=== PATIENT | female | born 1965 | race Asian ===

== ENCOUNTER 2017-06-12 20:21 | Emergency (ER) | payer BC ==
[2017-06-12 20:27] VITALS: BP 144/83; PULSE 74; TEMP 98.7; BMI 23.6
[2017-06-12] MEDS ORDERED: valACYclovir HCL 1000 MG TABLET PO ONE (21:34)
--- NOTE | 2017-06-12 21:34 | PDOC ---
History of Present Illness - General History Source: Patient Exam Limitations: No Limitations - History of Present Illness Initial Comments: 06/12/17 21:53 The patient is a 52 year old female, with a significant PMH of type 2 DM, hypercholesterolemia, who presents to the emergency department with right sided facial rash beginning 4 days ago. THe patient states she noticed a red rash on the right side of her lip friday night but did not think much of the rash. However, the patient states that Friday she noticed she began to have another red rash on the bottom of the right eye lid with some associated itching and burning sensation. The patient reports that this morning she felt an itching sensation preceding another red rash on the right cheek with associated burning and itching sensation. The patient states she has been taking Zyrtec for the rash with minimal relief. The patient states she called her PMD Dr. Wilkinson who advised the patient to come to the ED for evaluation of the rash. The patient reports increased stressors including caring for her mother and the loss of her mother in law. The patient states she does not recall having chicken pox as a child. The patient denies vision changes or ear pain. The patient denies chest pain, shortness of breath, headache and dizziness. Denies fever, chills, nausea, vomit, diarrhea and constipation. Denies dysuria, frequency, urgency and hematuria. Allergies: NKA PCP: Dr. Wilkinson <Ag Gibson - Last Filed: 06/12/17 21:53> <Samantha Aguilar - Last Filed: 06/13/17 02:23> - General Chief Complaint: Redness To Affected Area Stated Complaint: FACIAL REDNESS/ITCHING Time Seen by Provider: 06/12/17 20:27 Past History <Ag Gibson - Last Filed: 06/12/17 21:53> - Past Medical History Anemia: Yes Asthma: No Cancer: No Cardiac Disorders: No CVA: No COPD: No CHF: No Dementia: No Diabetes: ("ELEVATED BLOOD SUGAR") GI Disorders: No Disorders: No HTN: No Hypercholesterolemia: Yes Liver Disease: No Seizures: No Thyroid Disease: No - Surgical History Abdominal Surgery: Yes Appendectomy: No Cardiac Surgery: No Cholecystectomy: No Lung Surgery: No Neurologic Surgery: No Orthopedic Surgery: No - Suicide/Smoking/Psychosocial Hx Smoking Status: Yes Smoking History: Former smoker Have you smoked in the past 12 months: No Number of Cigarettes Smoked Daily: 1 Information on smoking cessation initiated: No 'Breaking Loose' booklet given: 08/12/12 Hx Alcohol Use: No Drug/Substance Use Hx: No Substance Use Type: None Hx Substance Use Treatment: No <JeffSamantha Stephen - Last Filed: 06/13/17 02:23> - Past Medical History Allergies/Adverse Reactions: Allergies Allergy/AdvReac Type Severity Reaction Status Date / Time No Known Allergies Allergy Verified 07/05/13 08:13 Home Medications: Ambulatory Orders Cetirizine HCl [Zyrtec -] 10 mg PO ONCE 06/12/17 Simvastatin 20 mg PO DAILY 06/12/17 Valacyclovir HCl [Valtrex -] 1,000 mg PO TID #20 tablet 06/12/17 Review of Systems - Review of Systems Comments:: 06/12/17 21:53 GENERAL/CONSTITUTIONAL: No fever or chills. No weakness. HEAD, EYES, EARS, NOSE AND THROAT: No change in vision. No ear pain or discharge. No sore throat. CARDIOVASCULAR: No chest pain or shortness of breath. RESPIRATORY: No cough, wheezing, or hemoptysis. GASTROINTESTINAL: No nausea, vomiting, diarrhea or constipation. GENITOURINARY: No dysuria, frequency, or change in urination. MUSCULOSKELETAL: No joint or muscle swelling or pain. No neck or back pain. SKIN: +Right lip rash. +Right eyelid rash. +Right cheek rash. NEUROLOGIC: No headache, vertigo, loss of consciousness, or change in strength/ sensation. ENDOCRINE: No increased thirst. No abnormal weight change. HEMATOLOGIC/LYMPHATIC: No anemia, easy bleeding, or history of blood clots. ALLERGIC/IMMUNOLOGIC: No hives or skin allergy. <Ag Gibson - Last Filed: 06/12/17 21:53> *Physical Exam - Vital Signs Last Vital Signs Temp Pulse Resp BP Pulse Ox 98.7 F 74 16 144/83 97 06/12/17 20:25 06/12/17 20:25 06/12/17 20:25 06/12/17 20:25 06/12/17 20:25 - Physical Exam Comments: 06/12/17 21:54 GENERAL: Awake, alert, and fully oriented, in no acute distress HEAD: No signs of trauma EYES: PERRLA, EOMI, sclera anicteric, conjunctiva clear ENT: (+) 1 cm by 1 cm erythematous area under the mid right lower eyelid. (+) There is faint 2 cm by 1cm erythematous macular area of the mid right cheek. (+ ) There is fine vesicular rash around the right nares. (+) cm by cm erythematous area of the right upper lip just lateral to the midline. Remainder of the exam including the right ear and eye are normal without evidence of rash or abnormality. Auricles normal inspection, hearing grossly normal, nares patent , oropharynx clear without exudates. Moist mucosa NECK: Normal ROM, supple, no lymphadenopathy, JVD, or masses EXTREMITIES: Normal range of motion, no edema. No clubbing or cyanosis. No cords, erythema, or tenderness NEUROLOGICAL: Cranial nerves II through XII grossly intact. Normal speech, normal gait SKIN: Warm. Dry. <Ag Gibson - Last Filed: 06/12/17 21:53> - Vital Signs Last Vital Signs Temp Pulse Resp BP Pulse Ox 98.7 F 74 16 144/83 97 06/12/17 20:25 06/12/17 20:25 06/12/17 20:25 06/12/17 20:25 06/12/17 20:25 <Samantha Aguilar - Last Filed: 06/13/17 02:23> ED Treatment Course - Medications Given in the ED: ED Medications Discontinued Medications Generic Name Dose Route Start Last Admin Trade Name Freq PRN Reason Stop Dose Admin Valacyclovir HCl 1,000 mg 06/12/17 21:34 06/12/17 21:37 Valtrex - PO 06/12/17 21:35 1,000 mg ONCE ONE Administration <Ag Gibson - Last Filed: 06/12/17 21:53> Medical Decision Making - Medical Decision Making Documentation has been prepared under my direction and personally reviewed by me in its entirety. I attest that this documented accurately reflects all work, treatment, procedures and medical decision making performed by me. As noted above, this 52-year-old woman presents with 3 day history of progressive right-sided mid facial rash. Over the last 24 hours, there are areas of the rash becoming finely vesicular with burning pain and very pruritic. No other symptoms noted. The patient and her parents cannot recall that she had chickenpox as a child. She has been having marked amount of emotional stress in recent weeks as noted above. Exam as noted. This unilateral mid facial rash has some characteristics consistent with zoster. It is not characteristic of any other rash, antiviral therapy will be started. Patient given 1000 mg valacyclovir and prescription for 7 day course sent to her pharmacy. Patient should follow-up with Dr. Wilkinson within the next several days. If she has any worsening of her pain, vision or hearing difficulty she should see him sooner or return to the ER <Samantha Aguilar - Last Filed: 06/13/17 02:23> *DC/Admit/Observation/Transfer - Attestations Scribe Attestion: 06/12/17 21:54 Documentation prepared by Ag Gibson, acting as medical intern for Samantha Aguilar MD. <Ag Gibson - Last Filed: 06/12/17 21:53> <Samantha Aguilar - Last Filed: 06/13/17 02:23> Diagnosis at time of Disposition: Zoster Qualifiers: Herpes zoster complications: without complications Qualified Code(s): B02.9 - Zoster without complications - Discharge Dispostion Disposition: HOME Condition at time of disposition: Stable - Prescriptions Prescriptions: Valacyclovir HCl [Valtrex -] 1,000 mg PO TID #20 tablet - Referrals Referrals: Frandy Wilkinson MD [Primary Care Provider] - - Patient Instructions Printed Discharge Instructions: Shingles, Valacyclovir Additional Instructions: Valtrex 1000 mg 3 times a day for 1 week Can use hydrocortisone cream on rash needed Follow-up with within the next 5 days Return to ER or see if you have severe itching or pain/vision or hearing changes Avoid contact with women/very young children/immunocompromised people - Post Discharge Activity
[2017-06-12] MEDS ORDERED: valACYclovir HCL 500 MG TABLET (FP) ONE (21:35)
== END 2017-06-12 21:46 | disposition home or self-care (01) ==
LOC: FER 20:21
DX: B02.9 Zoster without complications (principal); E11.9 Type 2 diabetes mellitus without complications; E78.00 Pure hypercholesterolemia, unspecified
CPT/HCPCS: 99281-25